=== PATIENT | female | born 1940 | race Caucasian/White ===

== ENCOUNTER 2016-11-23 18:59 | Emergency (ER) | payer SELFPAY ==
[~2016-11-23] VITALS: Ht 149.9 cm; Wt 54.4 kg
[2016-11-23] MEDS ORDERED: TDAP [DIPH/PERTUSSIS/TET] 0.5 ML VIAL IM ONE ×2 (19:27→19:30)
[2016-11-23 21:19] VITALS: BP 136/62
== END 2016-11-23 21:20 | disposition home or self-care (01) ==
LOC: ER 19:01
DX: S01.01XA Laceration without foreign body of scalp, initial encounter (principal); E03.9 Hypothyroidism, unspecified; F03.90 Unspecified dementia, unspecified severity, without behavioral disturbance, psychotic disturbance, mood disturbance, and anxiety; F32.9 Major depressive disorder, single episode, unspecified; Y04.0XXA Assault by unarmed brawl or fight, initial encounter; W25.XXXA Contact with sharp glass, initial encounter; Y93.89 Activity, other specified; Y92.89 Other specified places as the place of occurrence of the external cause; Y99.8 Other external cause status
CPT/HCPCS: 12002; 70450; 82962; 90471; 90715; 99284; A4606; A6402; Z7610

== ENCOUNTER 2017-05-27 14:32 | Emergency (ER) | payer OTHER ==
[~2017-05-27] VITALS: Ht 149.9 cm; Wt 63.5 kg
--- NOTE | 2017-05-27 14:40 | NUR ---
JILLIAN FROM [facility] DT LOWER ABDOMINAL PAIN, 0/10 AT THIS TIME, NON RADIATING, POSSIBLE UTI. DENIES HEMATURIA. PATIENT IS AAO3. APPEARSIN NO APPARENT DISTRESS. RESPIRATION EVEN AND UNALBORED. SKIN IS WARM TO TOUCH AND NON DIAPHORETIC,. AFEBRILE. VSS
--- NOTE | 2017-05-27 14:42 | NUR ---
URINE MARYELLEN COLLECTED AND SENT TO LAB
[2017-05-27 14:59] LABS: APPEARANCE,URINE Clear (CLEAR); BILIRUBIN,URINE Negative (NEGATIVE); BLOOD, URINE Trace-lysed Ery/uL (NEGATIVE); COLOR,URINE Yellow (YELLOW); KETONES,URINE Trace (NEGATIVE); LEUKOCYTE ESTERASE ,URINE Small (NEGATIVE); NITRITE, URINE Negative (NEGATIVE); PROTEIN,URINE 30 mg/dl (NEGATIVE); UGLUCOSE Negative (NEGATIVE); UROBILINOGEN,URINE 0.2 EU/dL (0.2)
[2017-05-27] MEDS ORDERED: IV NS 0.9% 1,000 ML BAG IV ONE (15:00)
[2017-05-27 15:05] LABS: BASOPHILS % (AUTO) 0.6 % (0.0-2.0); EOSINOPHILS # (AUTO) 0.1 /CMM (0.0-0.7); EOSINOPHILS % (AUTO) 1.2 % (0.0-6.0); HEMATOCRIT 43 % (33-45); HEMOGLOBIN 14.8 g/dL (11.5-14.8); LYMPHOCYTES # (AUTO) 1.9 /CMM (0.8-4.8); LYMPHOCYTES % (AUTO) 27.8 % (20.0-44.0); MEAN CORPUSCULAR HEMOGLOBIN 33 PG (26.0-33.0); MEAN CORPUSCULAR HGB CONC 35 g/dl (31.0-36.0); MEAN CORPUSCULAR VOLUME 95 fL (82-100); MONOCYTES # (AUTO) 0.6 /CMM (0.1-1.30); MONOCYTES % (AUTO) 8.1 % (2.0-12.0); NEUTROPHILS # (AUTO) 4.3 /CMM (1.8-8.9); NEUTROPHILS % (AUTO) 62.3 % (43.0-81.0); PLATELET COUNT (AUTO) 211 /CMM (150-450); RDW COEFFICIENT OF VARIATION 13.2 (11.5-15.0); WHITE BLOOD COUNT (AUTO) 6.9 K/uL (4.3-11.0)
[2017-05-27 15:10] LABS: WBC,URINE 21-50 /HPF (0-3)
[2017-05-27 15:11] LABS: BACTERIA,URINE 1+ /HPF (None Seen); SQUAMOUS EPITHELIAL CELL,UR Few /HPF (None Seen)
[2017-05-27 15:32] LABS: ALANINE AMINOTRANSFERASE 32 U/L (12-78); ALBUMIN 3.6 g/dL (3.4-5.0); ALKALINE PHOSPHATASE 74 U/L (46-116); ASPARTATE AMINOTRANSFERASE 23 U/L (15-37); BILIRUBIN,DIRECT 0.2 mg/dL (0.0-0.2); CALCIUM, SERUM 8.4 mg/dL (8.5-10.1); CARBON DIOXIDE 32 mmol/L (21-32); CHLORIDE 105 mmol/L (98-107); GLUCOSE 93 mg/dL (74-106); LIPASE 180 U/L (73-393); POTASSIUM 3.6 mmol/L (3.5-5.1); SODIUM SERUM 141 mmol/L (136-145); TOTAL PROTEIN, SERUM 7.4 g/dL (6.4-8.2); UREA NITROGEN, BLOOD 15 mg/dL (7-18)
[2017-05-27] MEDS ORDERED: CEFTRIAXONE 1GM BAG (ER ONLY) 1 GM/50 ML PIGGYBACK IV ONE (16:00)
--- NOTE | 2017-05-27 16:00 | NUR ---
DUPLICATE ORDER FOR ROCEPHINE
--- NOTE | 2017-05-27 16:02 | NUR ---
CALLED PHARMACY FOR HERMELINDO
--- NOTE | 2017-05-27 16:23 | NUR ---
CALLED [facility]. CASE ASSIGNED TO PHYSICIAN
[2017-05-27] MEDS ORDERED: CEFTRIAXONE 1 G in IV D5W 50 ML IV ONE (16:30)
--- NOTE | 2017-05-27 19:00 | NUR ---
REPORT GIVEN TO ANABEL HARRIS.
--- NOTE | 2017-05-27 19:23 | NUR ---
Patient discharged to home in stable condition. Written and verbal after care instructions given. Patient verbalizes understanding of instruction.IV removed. Catheter intact and site benign. Pressure and 4x4 applied to site. No bleeding noted.
[2017-05-27 19:24] VITALS: BP 143/72
== END 2017-05-27 19:24 | disposition home or self-care (01) ==
LOC: ER 14:36
DX: N39.0 Urinary tract infection, site not specified (principal); E03.9 Hypothyroidism, unspecified; F03.90 Unspecified dementia, unspecified severity, without behavioral disturbance, psychotic disturbance, mood disturbance, and anxiety; F32.9 Major depressive disorder, single episode, unspecified; M51.36 Other intervertebral disc degeneration, lumbar region; Z90.710 Acquired absence of both cervix and uterus
CPT/HCPCS: 36415; 80048-TC; 80076-TC; 81000-TC; 83690-TC; 85025-TC; 87086-TC; 87186-TC; A4606; J0696; J7060; Z7610

== ENCOUNTER 2017-09-20 22:42 | Emergency (ER) | payer OTHER ==
[2017-09-20] MEDS ORDERED: LET SOLN TOPICAL 8 ML UDC TP ONE ×2 (23:25→23:30)
[2017-09-20] MEDS ORDERED: TDAP [DIPH/PERTUSSIS/TET] 0.5 ML VIAL IM ONE ×2 (23:25→23:30)
== END 2017-09-21 01:35 | disposition home or self-care (01) ==
DX: S01.01XA Laceration without foreign body of scalp, initial encounter (principal); E03.9 Hypothyroidism, unspecified; F03.90 Unspecified dementia, unspecified severity, without behavioral disturbance, psychotic disturbance, mood disturbance, and anxiety; I10 Essential (primary) hypertension; R56.9 Unspecified convulsions; F31.9 Bipolar disorder, unspecified; W06.XXXA Fall from bed, initial encounter; Y93.89 Activity, other specified; Y92.89 Other specified places as the place of occurrence of the external cause; Y99.8 Other external cause status

== ENCOUNTER 2019-04-12 18:01 | Emergency (ER) | payer OTHER ==
[~2019-04-12] VITALS: Ht 152.4 cm; Wt 50.8 kg
[2019-04-12] MEDS ORDERED: CALC-7 PO (18:14)
[2019-04-12] MEDS ORDERED: QUET50TA PO (18:14)
[2019-04-12] MEDS ORDERED: LEVO100T9 PO (18:14)
[2019-04-12] MEDS ORDERED: VALP250S3 PO (18:14)
[2019-04-12] MEDS ORDERED: CLON0.5T4 PO (18:14)
[2019-04-12] MEDS ORDERED: QUET25TA PO (18:14)
[2019-04-12] MEDS ORDERED: CITA20TA16 PO (18:14)
[2019-04-12] MEDS ORDERED: ANAS1TAB8 PO (18:14)
[2019-04-12] MEDS ORDERED: TRAZ-182 PO (18:14)
[2019-04-12] MEDS ORDERED: DONE10TA44 PO (18:14)
[2019-04-12] MEDS ORDERED: AMLO5TAB9 PO (18:14)
[2019-04-12] MEDS ORDERED: HALO0.5T PO (18:14)
--- NOTE | 2019-04-12 18:27 | NUR ---
BIBRA60 FROM [facility], LETHARGY SINCE THIS AM. PT EYES CLOSED WILL MOAN FOR PAINFUL STIMULI. VSS. RR EVEN & UNLABORED. SKIN PINK WARM/DRY & INTACT. PLACED ON CLOTHING PATTERN PREPARER, SR. AWAITING EVAL BY AARON. WILL CONT TO MONITOR.
[2019-04-12 19:20] LABS: BASOPHILS % (AUTO) 0.5 % (0.0-2.0); EOSINOPHILS % (AUTO) 1.1 % (0.0-6.0); HEMATOCRIT 40 % (33-45); HEMOGLOBIN 13.6 g/dL (11.5-14.8); LYMPHOCYTES # (AUTO) 2.7 /CMM (0.8-4.8); LYMPHOCYTES % (AUTO) 42.9 % (20.0-44.0); MEAN CORPUSCULAR HGB CONC 34 g/dl (31.0-36.0); MEAN CORPUSCULAR VOLUME 104 fL (82-100); MONOCYTES # (AUTO) 0.5 /CMM (0.1-1.30); MONOCYTES % (AUTO) 8.6 % (2.0-12.0); NEUTROPHILS # (AUTO) 2.9 /CMM (1.8-8.9); NEUTROPHILS % (AUTO) 46.9 % (43.0-81.0); PLATELET COUNT (AUTO) 175 /CMM (150-450); RED BLOOD CELL COUNT(AUTO) 3.82 MIL/uL (4.0-5.2); WHITE BLOOD COUNT (AUTO) 6.2 K/uL (4.3-11.0)
[2019-04-12 19:26] LABS: APPEARANCE,URINE Clear (CLEAR); BILIRUBIN,URINE Negative (NEGATIVE); BLOOD, URINE Negative Ery/uL (NEGATIVE); COLOR,URINE Yellow (YELLOW); KETONES,URINE Negative (NEGATIVE); LEUKOCYTE ESTERASE ,URINE Trace (NEGATIVE); NITRITE, URINE Negative (NEGATIVE); PROTEIN,URINE Negative (NEGATIVE); UGLUCOSE Negative (NEGATIVE); UROBILINOGEN,URINE 0.2 EU/dL (0.2)
[2019-04-12 19:28] LABS: CALCIUM, SERUM 9.1 mg/dL (8.5-10.1); CARBON DIOXIDE 29 mmol/L (21-32); CHLORIDE 104 mmol/L (98-107); CREATININE 0.8 mg/dL (0.6-1.3); GLUCOSE 107 mg/dL (74-106); POTASSIUM 4.5 mmol/L (3.5-5.1); SODIUM SERUM 140 mmol/L (136-145); UREA NITROGEN, BLOOD 17 mg/dL (7-18)
[2019-04-12 19:33] LABS: ALANINE AMINOTRANSFERASE 117 U/L (12-78); ALBUMIN 3.7 g/dL (3.4-5.0); ALCOHOL, BLOOD < 3 mg/dL (0-0); ALKALINE PHOSPHATASE 60 U/L (46-116); ASPARTATE AMINOTRANSFERASE 93 U/L (15-37); BILIRUBIN,DIRECT 0.1 mg/dL (0.0-0.2); BILIRUBIN,TOTAL 1.1 mg/dL (0.2-1.0); TOTAL PROTEIN, SERUM 7.9 g/dL (6.4-8.2)
[2019-04-12 19:35] LABS: ACETAMINOPHEN 0 ug/ml (10-30); SALICYLATE 0.3 mg/dL (2.8-20.0)
[2019-04-12 19:37] LABS: SERUM AMMONIA 9 umol/L (11-32)
[2019-04-12 19:43] LABS: BACTERIA,URINE None seen /HPF (None Seen); RBC,URINE 0-2 /HPF (0-2); SQUAMOUS EPITHELIAL CELL,UR Few /HPF (None Seen); WBC,URINE 0-2 /HPF (0-3)
[2019-04-12 20:03] LABS: CREATINE KINASE, TOTAL 383 U/L (26-192)
[2019-04-12 20:26] LABS: THYROID STIMULATING HORMONE 190.918 uIU/mL (0.358-3.74)
--- NOTE | 2019-04-12 20:32 | NUR ---
CALLED [facility] FOR [facility] READ
--- NOTE | 2019-04-12 20:39 | NUR ---
PT ASLEEP, SNORING, WILL MOAN & START TALKING FOR PAINFUL STIMULI. RR EVEN & UNLABORED, SKIN PINK WARM/DRY & INTACT. WILL CONT TO MONITOR.
--- NOTE | 2019-04-12 21:08 | NUR ---
CALLED [facility] FOR READ CT HEAD
[2019-04-12] MEDS ORDERED: HYDROCORTISONE SOD SUCCINATE 100 MG/2 ML VIAL ONE (21:49)
[2019-04-12] MEDS: HYDROCORTISONE SOD SUCCINATE 100 MG/2 ML VIAL IV ONE (21:54)
[2019-04-12 21:56] VITALS: BP 108/65
--- NOTE | 2019-04-12 22:27 | NUR ---
CALLED [facility] , SPOKE RICK WORKING ON PENDING ADMISSION.
[2019-04-12] MEDS: LEVOTHYROXINE INJ 100 MCG VIAL IV ONE (22:35)
[2019-04-12] MEDS: LEVOTHYROXINE INJ 100 MCG VIAL IV SCH (22:35)
--- NOTE | 2019-04-12 22:39 | NUR ---
SHAMIR CAVAZOS. [facility] ER - DR. RUDOLPH REPORT [phone] ALS TRANSFER PRN ETA [id number].
--- NOTE | 2019-04-12 23:37 | NUR ---
REPORT GIVEN TO ANABEL ORTIZ FOR MARITA @ [facility]. PT EN ROUTE VIA ALS.
== END 2019-04-12 23:39 | disposition short-term general hospital (02) ==
LOC: ER 18:07
DX: S40.012A Contusion of left shoulder, initial encounter (principal); R41.82 Altered mental status, unspecified; E03.8 Other specified hypothyroidism; F03.90 Unspecified dementia, unspecified severity, without behavioral disturbance, psychotic disturbance, mood disturbance, and anxiety; R56.9 Unspecified convulsions; I10 Essential (primary) hypertension; F31.9 Bipolar disorder, unspecified; G47.00 Insomnia, unspecified; R00.1 Bradycardia, unspecified; Z79.899 Other long term (current) drug therapy; X58.XXXA Exposure to other specified factors, initial encounter; Y93.89 Activity, other specified; Y92.89 Other specified places as the place of occurrence of the external cause; Y99.8 Other external cause status
CPT/HCPCS: 36415; 70450; 71045; 73030; 80048; 80076; 80305; 80307; 80329; 81001; 82140; 82550; 84439; 84443; 84480; 84484; 85025; 87081; 93005; 96374; 96375; 99285; G0480; J1720; 81000-TC

== ENCOUNTER 2019-07-06 12:16 | Emergency (ER) | payer OTHER ==
[~2019-07-06] VITALS: Ht 152.4 cm; Wt 53.7 kg
[~2019-07-06 12:16] MED LIST: AMLO5TAB9 PO; ANAS1TAB8 PO; CALC-7 PO; CITA20TA16 PO; CLON0.5T4 PO; DONE10TA44 PO; HALO0.5T PO; LEVO100T9 PO; QUET25TA PO; QUET50TA PO; TRAZ-182 PO; VALP250S3 PO
--- NOTE | 2019-07-06 12:16 | NUR ---
PT DYLAN FROM [facility] C/O ALTERED MENTAL STATUS, L ARM TWITCHING AND DROOLING PER REPORT, PT IS AAOX1, NOT IN RESPIRATORY DISTRESS, HOOKED TO MONITOR, KEPT RESTED AND COMFORTABLE, WILL CONTINUE TO MONITOR.
--- NOTE | 2019-07-06 12:20 | NUR ---
SEEN AND EXAMINED BY .
--- NOTE | 2019-07-06 12:25 | NUR ---
CODE STROKE ACTIVATED.
--- NOTE | 2019-07-06 12:26 | NUR ---
TELE STROKE ACTIVATED.
[2019-07-06] MEDS ORDERED: IV NS 0.9% 250 ML IV ONE (12:27)
[2019-07-06] MEDS ORDERED: IOHEXOL-350 100 ML VIAL IV ONE (12:27)
[2019-07-06] MEDS ORDERED: CT SWABBABLE VALVE TRANS SET 1 EA INFUS.SET MC ONE (12:27)
--- NOTE | 2019-07-06 12:27 | NUR ---
WHEELED TO CT SCAN VIA ACLS PROTOCOL.
[2019-07-06 12:39] LABS: BASOPHILS # (AUTO) 0.1 /CMM (0.0-0.2); BASOPHILS % (AUTO) 0.7 % (0.0-2.0); EOSINOPHILS % (AUTO) 0.2 % (0.0-6.0); HEMATOCRIT 38 % (33-45); HEMOGLOBIN 13.1 g/dL (11.5-14.8); LYMPHOCYTES # (AUTO) 1.9 /CMM (0.8-4.8); LYMPHOCYTES % (AUTO) 26.1 % (20.0-44.0); MEAN CORPUSCULAR HGB CONC 34 g/dl (31.0-36.0); MEAN CORPUSCULAR VOLUME 104 fL (82-100); MONOCYTES # (AUTO) 0.5 /CMM (0.1-1.30); MONOCYTES % (AUTO) 6.4 % (2.0-12.0); NEUTROPHILS # (AUTO) 4.8 /CMM (1.8-8.9); NEUTROPHILS % (AUTO) 66.6 % (43.0-81.0); PLATELET COUNT (AUTO) 158 /CMM (150-450); WHITE BLOOD COUNT (AUTO) 7.2 K/uL (4.3-11.0)
--- NOTE | 2019-07-06 12:44 | NUR ---
PT IS BACK FROM THE CT SCAN.
[2019-07-06 12:55] LABS: CHOLESTEROL 224 mg/dL (<200); HDL CHOLESTEROL 86 mg/dL (40-60); LDL 114 mg/dL (0-99); TRIGLYCERIDES 140 mg/dL (30-150)
[2019-07-06 13:20] LABS: ALANINE AMINOTRANSFERASE 228 U/L (12-78); ALBUMIN 3.7 g/dL (3.4-5.0); ALKALINE PHOSPHATASE 67 U/L (46-116); ASPARTATE AMINOTRANSFERASE 108 U/L (15-37); BILIRUBIN,DIRECT 0.2 mg/dL (0.0-0.2); BILIRUBIN,TOTAL 0.9 mg/dL (0.2-1.0); CALCIUM, SERUM 8.6 mg/dL (8.5-10.1); CARBON DIOXIDE 28 mmol/L (21-32); CHLORIDE 106 mmol/L (98-107); GLUCOSE 132 mg/dL (74-106); POTASSIUM 3.3 mmol/L (3.5-5.1); SODIUM SERUM 145 mmol/L (136-145); TOTAL PROTEIN, SERUM 7.1 g/dL (6.4-8.2); UREA NITROGEN, BLOOD 20 mg/dL (7-18)
--- NOTE | 2019-07-06 13:32 | NUR ---
CALLED [facility], AWAITING MD CALL BACK
--- NOTE | 2019-07-06 14:55 | NUR ---
CALLED [facility] MD IS BACKED UP BUT HAS RECEIVED CASE
--- NOTE | 2019-07-06 15:39 | NUR ---
URINE SPECIMEN COLLECTED AND SENT TO LAB.
--- NOTE | 2019-07-06 15:44 | NUR ---
[facility] ACCEPTING DR. CORONA [phone] TRANSPORT HERE AT 1630 PRN.
[2019-07-06] MEDS ORDERED: IV NS 0.9% 1,000 ML BAG IV ONE (16:00)
[2019-07-06 16:07] LABS: APPEARANCE,URINE SL CLOUDY (CLEAR); BILIRUBIN,URINE NEGATIVE (NEGATIVE); BLOOD, URINE TRACE Ery/uL (NEGATIVE); COLOR,URINE YELLOW (YELLOW); KETONES,URINE NEGATIVE (NEGATIVE); NITRITE, URINE POSITIVE (NEGATIVE); PROTEIN,URINE TRACE mg/dl (NEGATIVE); UGLUCOSE NEGATIVE (NEGATIVE); UROBILINOGEN,URINE 0.2 EU/dL (0.2)
--- NOTE | 2019-07-06 16:10 | NUR ---
[facility] CALLED TO ANNA UA HAS BEEN COMPLETED AND TO ADD IT TO THE PACKET UPON ELECTRICAL MAINTENANCE SUPERVISOR
[2019-07-06 16:15] LABS: BACTERIA,URINE 3+ /HPF (None Seen); LEUKOCYTE ESTERASE ,URINE 1+ (NEGATIVE); RBC,URINE 0-2 /HPF (0-2); SQUAMOUS EPITHELIAL CELL,UR Few /HPF (None Seen); WBC,URINE 21-50 /HPF (0-3)
[2019-07-06 16:16] LABS: URINE AMORPHOUS PHOSPHATES Moderate /HPF (None Seen)
--- NOTE | 2019-07-06 16:25 | NUR ---
REPORT GIVEN TO ANABEL XAVIER OF [facility] FOR MARITA.
[2019-07-06 16:55] VITALS: BP 106/47
--- NOTE | 2019-07-06 16:55 | NUR ---
REPORT GIVEN TO EMT FOR PT TRANSFER TO [facility].
--- NOTE | 2019-07-09 09:47 | NUR ---
URINE CULTURE RESULT RELAYED AND SENT BY FAX TO [facility],[phone], PHONE#[phone]
== END 2019-07-06 16:56 | disposition short-term general hospital (02) ==
LOC: ER 12:20
DX: R41.82 Altered mental status, unspecified (principal); F03.90 Unspecified dementia, unspecified severity, without behavioral disturbance, psychotic disturbance, mood disturbance, and anxiety; I10 Essential (primary) hypertension; F32.9 Major depressive disorder, single episode, unspecified; G47.00 Insomnia, unspecified; E03.9 Hypothyroidism, unspecified; Z79.899 Other long term (current) drug therapy
CPT/HCPCS: 36415; 70450; 70496; 70498; 71045; 80048; 80061; 80076; 81001; 84484; 85025; 85730; 87077; 87086; 87186; 93005; 96360; 99285; J7030; J7050; Q9967; 81000-TC

== ENCOUNTER 2020-02-23 15:51 | Emergency (ER) | payer OTHER | END 2020-02-23 20:06 | DX: M25.551 Pain in right hip (principal); F03.90 Unspecified dementia, unspecified severity, without behavioral disturbance, psychotic disturbance, mood disturbance, and anxiety; I10 Essential (primary) hypertension; F32.9 Major depressive disorder, single episode, unspecified; E03.9 Hypothyroidism, unspecified; G47.00 Insomnia, unspecified; Z79.899 Other long term (current) drug therapy; W18.39XA Other fall on same level, initial encounter; Y93.89 Activity, other specified; Y92.89 Other specified places as the place of occurrence of the external cause; Y99.8 Other external cause status ==

== ENCOUNTER 2020-05-16 15:26 | Inpatient (IN) | payer OTHER ==
[~2020-05-16] VITALS: Ht 152.4 cm; Wt 46.3 kg
[~2020-05-16 15:26] MED LIST changes: +AMLO-212 PO; -AMLO5TAB9 PO
[2020-05-16] MEDS ORDERED: PIPERACILLIN /TAZOBACTAM 3.375 G in IV D5W 50 ML IV ONE (16:30)
[2020-05-16] MEDS ORDERED: IV NS 0.9% 500 ML BAG IV ONE (16:30)
[2020-05-16] MEDS ORDERED: VANCOMYCIN 1 GM in IV D5W 250 ML IV ONE (16:30)
[2020-05-16 18:10] LABS: BASOPHILS % (AUTO) 0.2 % (0.0-2.0); EOSINOPHILS % (AUTO) 0.1 % (0.0-6.0); HEMATOCRIT 55 % (33-45); HEMOGLOBIN 17.3 g/dL (11.5-14.8); LYMPHOCYTES # (AUTO) 1.9 /CMM (0.8-4.8); LYMPHOCYTES % (AUTO) 23.1 % (20.0-44.0); MEAN CORPUSCULAR HGB CONC 32 g/dl (31.0-36.0); MEAN CORPUSCULAR VOLUME 103 fL (82-100); MONOCYTES # (AUTO) 0.5 /CMM (0.1-1.30); MONOCYTES % (AUTO) 6.8 % (2.0-12.0); NEUTROPHILS # (AUTO) 5.7 /CMM (1.8-8.9); NEUTROPHILS % (AUTO) 69.8 % (43.0-81.0); PLATELET COUNT (AUTO) 176 /CMM (150-450); RED BLOOD CELL COUNT(AUTO) 5.32 MIL/uL (4.0-5.2); WHITE BLOOD COUNT (AUTO) 8.1 K/uL (4.3-11.0)
[2020-05-16 18:38] LABS: ALANINE AMINOTRANSFERASE 425 U/L (12-78); ALBUMIN 3.2 g/dL (3.4-5.0); ALKALINE PHOSPHATASE 167 U/L (46-116); ASPARTATE AMINOTRANSFERASE 329 U/L (15-37); BILIRUBIN,DIRECT 0.4 mg/dL (0.0-0.2); BILIRUBIN,TOTAL 1.4 mg/dL (0.2-1.0); CALCIUM, SERUM 8.6 mg/dL (8.5-10.1); CARBON DIOXIDE 29 mmol/L (21-32); CHLORIDE 125 mmol/L (98-107); CREATININE 1.5 mg/dL (0.6-1.3); GLUCOSE 117 mg/dL (74-106); POTASSIUM 4.4 mmol/L (3.5-5.1); TOTAL PROTEIN, SERUM 7.8 g/dL (6.4-8.2); UREA NITROGEN, BLOOD 59 mg/dL (7-18)
[2020-05-16 18:52] LABS: SODIUM SERUM 165 mmol/L (136-145)
[2020-05-16] MEDS ORDERED: VANCOMYCIN 1 GM VIAL ONE (19:19)
--- NOTE | 2020-05-16 19:43 | NUR ---
TOOK OVER PT CARE. PT AAOX0. BROUGHT TO E.D. FOR FAILURE TO THRIVE, DECRESED PO INTAKE. PT PLACED ON MONITOR AND PULSE OX. SAT 98%, ROOM AIR. AWAITING OTHER ORDERS.
[2020-05-16 19:44] LABS: BILIRUBIN,URINE MODERATE (NEGATIVE); COLOR,URINE YELLOW (YELLOW); LEUKOCYTE ESTERASE ,URINE MODERATE (NEGATIVE); NITRITE, URINE NEGATIVE (NEGATIVE); PH,URINE 7.5 (5.0-8.0); PROTEIN,URINE 30 mg/dl (NEGATIVE); UGLUCOSE NEGATIVE (NEGATIVE)
[2020-05-16 19:53] LABS: BACTERIA,URINE 3+ /HPF (None Seen); URINE AMORPHOUS PHOSPHATES Few /HPF (None Seen)
--- NOTE | 2020-05-16 20:00 | NUR ---
CALLED [facility], AWAITING MD CALL BACK
[2020-05-16] MEDS ORDERED: IV NS 0.9% 1,000 ML BAG IV ONE (20:30)
--- NOTE | 2020-05-16 20:39 | NUR ---
LAB CALLED REGARDING NEGATIVE COVID RESULT.
[2020-05-16] MEDS ORDERED: ACETAMINOPHEN 325 MG TABLET PO PRN (21:30)
[2020-05-16] MEDS: IV NS 0.9% 1,000 ML IV PRN (21:30)
[2020-05-16] MEDS ORDERED: Z GUARD REMEDY 2 OZ OINT TP PRN (21:30)
[2020-05-16] MEDS ORDERED: HYDROCODONE/APAP 5/325MG TABLET PO PRN (21:30)
[2020-05-16] MEDS ORDERED: ZOLPIDEM TARTRATE 5 MG TABLET PO PRN (21:30)
[2020-05-16] MEDS ORDERED: ONDANSETRON HCL/PF 4 MG/2 ML VIAL IVP PRN (21:30)
[2020-05-16] MEDS ORDERED: MAGNESIUM HYDROXIDE 30 ML UDC PO PRN (21:30)
[2020-05-16] MEDS ORDERED: VALPROIC ACID 250 MG/5 ML UDC PO ONE (21:30)
--- NOTE | 2020-05-16 21:44 | NUR ---
PO MEDS NOT GIVEN DUE TO PT FAILING PO CHALLENGE. I TRIED GIVING THE PT 30MLS OF WATER, PT WAS NOT ABLE TO FOLLOW MY COMMAND OR SWALLOW THE WATER EASILY. WILL TRY AGAIN. PT STATED "I CAN NOT" WHEN GIVING HER WATER.
[2020-05-16] MEDS: QUETIAPINE FUMARATE 25 MG TABLET PO SCH (22:00)
[2020-05-16] MEDS: DONEPEZIL 5 MG TABLET PO SCH (22:00)
--- NOTE | 2020-05-16 22:02 | NUR ---
PT UNABLE TO DRINK WATER. WILL HOLD PO MEDS.
[2020-05-17] MEDS ORDERED: PIPERACILLIN /TAZOBACTAM 2.25 G VIAL IV ONE (00:16)
[2020-05-17] MEDS: PIPERACILLIN /TAZOBACTAM 2.25 G in IV D5W 50 ML IV SCH ×4 (00:19→18:00)
--- NOTE | 2020-05-17 00:36 | NUR ---
MASTER TECHNICIAN AT BEDSIDE
[2020-05-17 01:12] LABS: CALCIUM, SERUM 7.2 mg/dL (8.5-10.1); CREATININE 1.3 mg/dL (0.6-1.3); POTASSIUM 3.5 mmol/L (3.5-5.1)
[2020-05-17] MEDS: IV NS 0.9% 1,000 ML IV PRN (04:06)
--- NOTE | 2020-05-17 04:06 | NUR ---
SPOKE TO PERICO ARAUJO, STATED TO CANCEL 1L NS 100ML/HR.
[2020-05-17] MEDS ORDERED: IV 1/2NS 1000 ML 1,000 ML IV PRN (04:30)
--- NOTE | 2020-05-17 06:30 | NUR ---
PT RESTING COMFORTABLY. VSS. PROVIDED WITH MORE BLANKETS, WILL CONTINUE TO MONITOR.
[2020-05-17] MEDS: LEVOTHYROXINE SODIUM 100 MCG TABLET PO SCH (07:00)
[2020-05-17] MEDS: QUETIAPINE FUMARATE 25 MG TABLET PO SCH ×3 (07:33→22:00)
[2020-05-17 07:57] LABS: BASOPHILS % (AUTO) 0.2 % (0.0-2.0); EOSINOPHILS % (AUTO) 0.1 % (0.0-6.0); HEMATOCRIT 43 % (33-45); LYMPHOCYTES # (AUTO) 1.3 /CMM (0.8-4.8); LYMPHOCYTES % (AUTO) 13.4 % (20.0-44.0); MEAN CORPUSCULAR HGB CONC 32 g/dl (31.0-36.0); MEAN CORPUSCULAR VOLUME 102 fL (82-100); MONOCYTES # (AUTO) 0.5 /CMM (0.1-1.30); MONOCYTES % (AUTO) 5.4 % (2.0-12.0); NEUTROPHILS # (AUTO) 7.7 /CMM (1.8-8.9); NEUTROPHILS % (AUTO) 80.9 % (43.0-81.0); PLATELET COUNT (AUTO) 131 /CMM (150-450); RED BLOOD CELL COUNT(AUTO) 4.24 MIL/uL (4.0-5.2); WHITE BLOOD COUNT (AUTO) 9.5 K/uL (4.3-11.0)
[2020-05-17 08:08] LABS: ALBUMIN 2.4 g/dL (3.4-5.0); BILIRUBIN,DIRECT 0.4 mg/dL (0.0-0.2); BILIRUBIN,TOTAL 1.3 mg/dL (0.2-1.0); CALCIUM, SERUM 7.1 mg/dL (8.5-10.1); CREATININE 1.2 mg/dL (0.6-1.3); MAGNESIUM 2.2 mg/dL (1.8-2.4); PHOSPHORUS 2.4 mg/dL (2.5-4.9); POTASSIUM 3.5 mmol/L (3.5-5.1); TOTAL PROTEIN, SERUM 5.8 g/dL (6.4-8.2)
[2020-05-17] MEDS: VALPROIC ACID 250 MG/5 ML UDC PO SCH ×2 (08:22→17:35)
[2020-05-17] MEDS: CITALOPRAM HYDROBROMIDE 20 MG TABLET PO SCH (08:22)
[2020-05-17] MEDS: ANASTROZOLE 1 MG TABLET PO SCH (08:22)
[2020-05-17] MEDS: CALCIUM CARB 250MG /VITAMIN D 1 UDTAB PO SCH ×2 (08:23→17:35)
[2020-05-17] MEDS: AMLODIPINE BESYLATE 5 MG TABLET PO SCH (08:23)
[2020-05-17] MEDS ORDERED: ENOXAPARIN SODIUM 30 MG/0.3 ML DISP.SYRIN ONE (08:59)
[2020-05-17] MEDS: ENOXAPARIN SODIUM 30 MG/0.3 ML DISP.SYRIN SQ SCH (09:10)
[2020-05-17] MEDS ORDERED: QUETIAPINE FUMARATE 25 MG TABLET ONE (12:32)
[2020-05-17 14:24] LABS: CALCIUM, SERUM 7.2 mg/dL (8.5-10.1); CREATININE 1.3 mg/dL (0.6-1.3); POTASSIUM 3.7 mmol/L (3.5-5.1)
[2020-05-17] MEDS ORDERED: K PHOS NEUTRAL 250 MG TABLET PO ONE (16:30)
--- NOTE | 2020-05-17 19:16 | NUR ---
ASSUMED CARE. RECEIVED REPORT FROM AM SHIFT ANABEL PETERSEN. PT RESTING QUIETLY, NO ACUTE DISTRESS NOTED, RESP EVEN AND UNLABORED. PT ON CARDIAC MONITORING, CONTINUOUS POX. NO PAIN OR DISCOMFORT NOTED. PT AWAKENS TO PAINFUL STIMULI BUT FALLS BACK. PT AAOX1. SKIN WARM, NONDIAPHORETIC. CALL LIGHT WITHIN REACH. WILL CONTINUE TO MONITOR PT CLOSELY. REPOSITIONED PT FOR COMFORT.
[2020-05-17] MEDS: VANCOMYCIN 1 GM in IV D5W 250 ML IV SCH (20:08)
[2020-05-17] MEDS: DONEPEZIL 5 MG TABLET PO SCH (22:00)
--- NOTE | 2020-05-17 22:36 | NUR ---
REPOSITION PT FOR COMFORT. NO ACUT DISTRESS NOTED, NO PAIN OR DISCOMFORT NOTED AT THIS TIME.
[2020-05-17 23:03] LABS: CALCIUM, SERUM 7.1 mg/dL (8.5-10.1); CREATININE 1.1 mg/dL (0.6-1.3); POTASSIUM 3.9 mmol/L (3.5-5.1)
[2020-05-18] MEDS: PIPERACILLIN /TAZOBACTAM 2.25 G in IV D5W 50 ML IV SCH ×4 (00:15→17:07)
--- NOTE | 2020-05-18 01:54 | NUR ---
PT ASLEEP, NO ACUTE DISTRESS NOTED, RESP EVEN AND UNLABORED. CALL LIGHT WITHIN REACH. WILL CONTINUE TO MONITOR PT CLOSELY.
[2020-05-18 05:27] LABS: BASOPHILS % (AUTO) 0.2 % (0.0-2.0); EOSINOPHILS % (AUTO) 0.8 % (0.0-6.0); HEMATOCRIT 40 % (33-45); HEMOGLOBIN 13.2 g/dL (11.5-14.8); LYMPHOCYTES # (AUTO) 1.4 /CMM (0.8-4.8); LYMPHOCYTES % (AUTO) 16.8 % (20.0-44.0); MEAN CORPUSCULAR HGB CONC 33 g/dl (31.0-36.0); MEAN CORPUSCULAR VOLUME 102 fL (82-100); MONOCYTES # (AUTO) 0.5 /CMM (0.1-1.30); MONOCYTES % (AUTO) 5.9 % (2.0-12.0); NEUTROPHILS # (AUTO) 6.5 /CMM (1.8-8.9); NEUTROPHILS % (AUTO) 76.3 % (43.0-81.0); PLATELET COUNT (AUTO) 116 /CMM (150-450); RED BLOOD CELL COUNT(AUTO) 3.94 MIL/uL (4.0-5.2); WHITE BLOOD COUNT (AUTO) 8.5 K/uL (4.3-11.0)
[2020-05-18 05:47] LABS: CALCIUM, SERUM 7.2 mg/dL (8.5-10.1); CREATININE 0.9 mg/dL (0.6-1.3); POTASSIUM 3.2 mmol/L (3.5-5.1)
--- NOTE | 2020-05-18 06:20 | NUR ---
REPOSITION PT FOR COMFORT. NO ACUT DISTRESS NOTED, NO PAIN OR DISCOMFORT NOTED AT THIS TIME.
[2020-05-18] MEDS: LEVOTHYROXINE SODIUM 100 MCG TABLET PO SCH (07:00)
[2020-05-18] MEDS: QUETIAPINE FUMARATE 25 MG TABLET PO SCH ×3 (07:40→22:00)
[2020-05-18] MEDS: ANASTROZOLE 1 MG TABLET PO SCH (10:00)
[2020-05-18] MEDS: CITALOPRAM HYDROBROMIDE 20 MG TABLET PO SCH (10:00)
[2020-05-18] MEDS: CALCIUM CARB 250MG /VITAMIN D 1 UDTAB PO SCH ×2 (10:00→16:05)
[2020-05-18] MEDS: VALPROIC ACID 250 MG/5 ML UDC PO SCH ×2 (10:00→16:05)
[2020-05-18] MEDS: AMLODIPINE BESYLATE 5 MG TABLET PO SCH (10:00)
[2020-05-18] MEDS ORDERED: POTASSIUM CL. PREMIX PERIPHER. 200 ML ONE (10:16)
[2020-05-18] MEDS ORDERED: ENOXAPARIN SODIUM 30 MG/0.3 ML DISP.SYRIN ONE (10:19)
[2020-05-18] MEDS: POTASSIUM CL. PREMIX PERIPHER. 50 ML IV SCH ×4 (10:25→13:30)
[2020-05-18] MEDS: ENOXAPARIN SODIUM 30 MG/0.3 ML DISP.SYRIN SQ SCH (10:25)
--- NOTE | 2020-05-18 10:58 | NUR ---
WOUND CARE CONSULT: PT PRESENTS WITH SACRAL INTACT DEEP TISSUE INJURY WITH SCARRING AND LEFT HIP UNSTAGEABLE ULCER, PRESENT ON ADMISSION. RECOMMEND SURGICAL CONSULT. DR KRISTY THURSTON NOTIFIED OF CONSULT REQUEST. RECOMMENDATIONS MADE FOR WOUND CARE AND SKIN PROTECTION. DISCUSSED WITH NURSING STAFF. PT NOTED TO HAVE CONTRACTED LOWER EXTREMITIES AND PT NOTED TO BE INCONTINENT. MD IN AGREEMENT WITH PLAN OF CARE. Addendum: 05/18/20 at 1059 by CLEO CARDENAS WNDNU Amended: Links added.
[2020-05-18] MEDS: DAKINS QUARTER STRENGTH (0.125%) 480 ML BOTTLE TOP SCH (13:30)
[2020-05-18] MEDS ORDERED: K PHOS NEUTRAL 250 MG TABLET PO ONE (17:30)
--- NOTE | 2020-05-18 19:32 | NUR ---
ASSUMED CARE. RECEIVED REPORT FROM AM SHIFT ANABEL PETERSEN. PT AAOX1. SKIN WARM, NONDIAPHORETIC. PT RESTING QUIETLY, NO ACUTE DISTRESS NOTED, RESP EVEN AND UNLABORED. PT ON CARDIAC MONITORING, CONTINUOUS POX. NO PAIN OR DISCOMFORT NOTED. CALL LIGHT WITHIN REACH. WILL CONTINUE TO MONITOR PT CLOSELY. REPOSITIONED PT FOR COMFORT.
[2020-05-18] MEDS: VANCOMYCIN 1 GM in IV D5W 250 ML IV SCH (20:09)
[2020-05-18] MEDS: DONEPEZIL 5 MG TABLET PO SCH (22:00)
[2020-05-18] MEDS ORDERED: DEXTROSE 50%-WATER 50 ML DISP.SYRIN IV PRN (23:00)
--- NOTE | 2020-05-18 23:56 | NUR ---
REPOSITION PT FOR COMFORT. NO ACUT DISTRESS NOTED, NO PAIN OR DISCOMFORT NOTED AT THIS TIME.
[2020-05-19] MEDS: BLOOD SUGAR DIAGNOSTIC 1 EACH STRIP IN SCH ×4 (00:39→18:06)
[2020-05-19] MEDS: PIPERACILLIN /TAZOBACTAM 2.25 G in IV D5W 50 ML IV SCH ×4 (00:39→18:30)
--- NOTE | 2020-05-19 05:25 | NUR ---
REPOSITION PT FOR COMFORT. NO ACUT DISTRESS NOTED, NO PAIN OR DISCOMFORT NOTED AT THIS TIME.
[2020-05-19 05:31] LABS: CALCIUM, SERUM 6.9 mg/dL (8.5-10.1); CARBON DIOXIDE 20 mmol/L (21-32); CHLORIDE 116 mmol/L (98-107); CREATININE 0.8 mg/dL (0.6-1.3); GLUCOSE 116 mg/dL (74-106); PHOSPHORUS 1.8 mg/dL (2.5-4.9); POTASSIUM 3.7 mmol/L (3.5-5.1); SODIUM SERUM 144 mmol/L (136-145); UREA NITROGEN, BLOOD 15 mg/dL (7-18)
[2020-05-19] MEDS: LEVOTHYROXINE SODIUM 100 MCG TABLET PO SCH (07:00)
[2020-05-19] MEDS: QUETIAPINE FUMARATE 25 MG TABLET PO SCH ×3 (08:00→22:00)
[2020-05-19] MEDS: CITALOPRAM HYDROBROMIDE 20 MG TABLET PO SCH (08:22)
[2020-05-19] MEDS: ANASTROZOLE 1 MG TABLET PO SCH (08:22)
[2020-05-19] MEDS: VALPROIC ACID 250 MG/5 ML UDC PO SCH ×2 (08:22→16:57)
[2020-05-19] MEDS: CALCIUM CARB 250MG /VITAMIN D 1 UDTAB PO SCH ×2 (08:23→16:58)
[2020-05-19] MEDS: DAKINS QUARTER STRENGTH (0.125%) 480 ML BOTTLE TOP SCH (08:23)
[2020-05-19] MEDS: AMLODIPINE BESYLATE 5 MG TABLET PO SCH (08:23)
[2020-05-19] MEDS ORDERED: ENOXAPARIN SODIUM 30 MG/0.3 ML DISP.SYRIN ONE (08:41)
[2020-05-19] MEDS: IV D5/0.45 NACL 1,000 ML IV PRN (08:46)
[2020-05-19] MEDS: ENOXAPARIN SODIUM 30 MG/0.3 ML DISP.SYRIN SQ SCH (08:47)
--- NOTE | 2020-05-19 12:39 | NUR ---
Blood glucose checked 126
[2020-05-19] MEDS: POTASSIUM PHOSPHATE MM 7.5 MMOL in IV NS 0.9% 100 ML IV SCH ×2 (15:22→18:00)
[2020-05-19] MEDS ORDERED: VANCOMYCIN 1 GM VIAL ONE (20:17)
[2020-05-19] MEDS: VANCOMYCIN 1 GM in IV D5W 250 ML IV SCH (20:35)
[2020-05-19] MEDS ORDERED: CEFTRIAXONE 1GM BAG (ER ONLY) 50 ML IV ONE (21:02)
[2020-05-19] MEDS: CEFTRIAXONE 1 G in IV D5W 50 ML IV SCH (21:13)
[2020-05-19] MEDS: DONEPEZIL 5 MG TABLET PO SCH (22:00)
--- NOTE | 2020-05-19 22:08 | NUR ---
PT UNABLE TO TAKE PO MED.
--- NOTE | 2020-05-19 23:01 | NUR ---
SPOKE TO JAIME LAROSE, MADE AWARE THAT PT IS NOT ABLE TO TAKE PO MEDS.
--- NOTE | 2020-05-19 23:27 | NUR ---
RESTING COMFORTABLY. VSS.
[2020-05-20] MEDS: BLOOD SUGAR DIAGNOSTIC 1 EACH STRIP IN SCH ×5 (00:40→23:29)
--- NOTE | 2020-05-20 05:26 | NUR ---
PT REPOSITIONED, VSS. RESTING COMFORTABLY.
[2020-05-20 06:09] LABS: BASOPHILS % (AUTO) 0.3 % (0.0-2.0); EOSINOPHILS % (AUTO) 1.6 % (0.0-6.0); HEMATOCRIT 38 % (33-45); HEMOGLOBIN 12.8 g/dL (11.5-14.8); LYMPHOCYTES # (AUTO) 1.3 /CMM (0.8-4.8); LYMPHOCYTES % (AUTO) 20.3 % (20.0-44.0); MEAN CORPUSCULAR HGB CONC 33 g/dl (31.0-36.0); MEAN CORPUSCULAR VOLUME 99 fL (82-100); MONOCYTES # (AUTO) 0.3 /CMM (0.1-1.30); MONOCYTES % (AUTO) 5.3 % (2.0-12.0); NEUTROPHILS # (AUTO) 4.5 /CMM (1.8-8.9); NEUTROPHILS % (AUTO) 72.5 % (43.0-81.0); PLATELET COUNT (AUTO) 101 /CMM (150-450); RED BLOOD CELL COUNT(AUTO) 3.85 MIL/uL (4.0-5.2); WHITE BLOOD COUNT (AUTO) 6.2 K/uL (4.3-11.0)
[2020-05-20 06:21] LABS: CALCIUM, SERUM 6.5 mg/dL (8.5-10.1); CREATININE 0.8 mg/dL (0.6-1.3); MAGNESIUM 1.5 mg/dL (1.8-2.4)
[2020-05-20 06:24] LABS: POTASSIUM 2.8 mmol/L (3.5-5.1)
[2020-05-20] MEDS: LEVOTHYROXINE SODIUM 100 MCG TABLET PO SCH (07:00)
[2020-05-20] MEDS: POTASSIUM CL. PREMIX PERIPHER. 50 ML IV SCH ×4 (07:30→10:45)
--- NOTE | 2020-05-20 07:38 | NUR ---
patient in bed asleep, easily arousable by voice. hooked to monitor. VSS. will continue to monitor accordingly
[2020-05-20] MEDS: QUETIAPINE FUMARATE 25 MG TABLET PO SCH ×3 (08:00→22:00)
[2020-05-20] MEDS: CITALOPRAM HYDROBROMIDE 20 MG TABLET PO SCH (09:00)
[2020-05-20] MEDS: DAKINS QUARTER STRENGTH (0.125%) 480 ML BOTTLE TOP SCH (09:00)
[2020-05-20] MEDS: ENOXAPARIN SODIUM 30 MG/0.3 ML DISP.SYRIN SQ SCH (09:00)
[2020-05-20] MEDS: AMLODIPINE BESYLATE 5 MG TABLET PO SCH (09:00)
[2020-05-20] MEDS: CALCIUM CARB 250MG /VITAMIN D 1 UDTAB PO SCH ×2 (09:00→17:00)
[2020-05-20] MEDS: VALPROIC ACID 250 MG/5 ML UDC PO SCH ×2 (09:00→17:00)
[2020-05-20] MEDS: ANASTROZOLE 1 MG TABLET PO SCH (09:00)
--- NOTE | 2020-05-20 10:42 | NUR ---
PATIENT IN BED ASLEEP, EASILY AROUSABLE BY VOICE. REFUSED BREAKFAST TRAY. PLACED FOOD AT BEDSIDE. VSS.
[2020-05-20] MEDS: Magnesium 1GM/D5W 100ML PREMIX 100 ML IV SCH ×2 (12:12→13:19)
--- NOTE | 2020-05-20 14:12 | NUR ---
PATIENT IN BED EYES CLOSED. DOES NOT WANT TO BE BOTHERED. REPOSITIONED TO R SIDE. KEPT WARM AND COMFORTABLE.
[2020-05-20] MEDS: POTASSIUM PHOSPHATE MM 7.5 MMOL in IV NS 0.9% 100 ML IV SCH ×2 (16:30→20:30)
--- NOTE | 2020-05-20 17:12 | NUR ---
PATIENT REPOSITIONED AT HER LEFT SIDE FOR COMFORT
--- NOTE | 2020-05-20 19:14 | NUR ---
PATIENT IN BED ASLEEP, EASILY AROUSABLE BY VOICE. HOOKED TO MONITOR. VSS. WILL CONTINUE TO MONITOR ACCORDINGLY
[2020-05-20] MEDS ORDERED: ENOXAPARIN SODIUM 30 MG/0.3 ML DISP.SYRIN ONE (19:28)
[2020-05-20] MEDS: IV D5/0.45 NACL 1,000 ML IV PRN (19:45)
--- NOTE | 2020-05-20 20:46 | NUR ---
Alba freeman in EDM - 05/20/20 at 2047 by EVICTOR PT HR AT 78 SINUS MD GOYO AWARE. STATED TO STOP THE AMIODARONE DRIP.
--- NOTE | 2020-05-20 21:52 | NUR ---
PT SAT 97% ROOM AIR.
[2020-05-20] MEDS ORDERED: CEFTRIAXONE 1GM BAG (ER ONLY) 50 ML IV ONE (21:54)
[2020-05-20] MEDS: CEFTRIAXONE 1 G in IV D5W 50 ML IV SCH (21:55)
[2020-05-20] MEDS: DONEPEZIL 5 MG TABLET PO SCH (22:00)
[2020-05-20] MEDS: VANCOMYCIN 0.75 GM in IV D5W 250 ML IV SCH (22:24)
--- NOTE | 2020-05-20 22:28 | NUR ---
PT PASSED SWALLOW EVAL. JAIME LAROSE AWARE.
--- NOTE | 2020-05-21 01:00 | NUR ---
PT RESTING COMFORTABLY. VSS. REPOSITIONED TO THE RIGHT. PROVIDED WITH BLANKETS.
--- NOTE | 2020-05-21 04:04 | NUR ---
PT RESTING COMFORTABLY. VSS. REMAINS ASLEEP.
[2020-05-21 04:47] LABS: BASOPHILS % (AUTO) 0.5 % (0.0-2.0); EOSINOPHILS % (AUTO) 1.9 % (0.0-6.0); HEMATOCRIT 43 % (33-45); LYMPHOCYTES # (AUTO) 1.4 /CMM (0.8-4.8); LYMPHOCYTES % (AUTO) 19.8 % (20.0-44.0); MEAN CORPUSCULAR HGB CONC 33 g/dl (31.0-36.0); MEAN CORPUSCULAR VOLUME 101 fL (82-100); MONOCYTES # (AUTO) 0.4 /CMM (0.1-1.30); MONOCYTES % (AUTO) 5.3 % (2.0-12.0); NEUTROPHILS # (AUTO) 5.2 /CMM (1.8-8.9); NEUTROPHILS % (AUTO) 72.5 % (43.0-81.0); PLATELET COUNT (AUTO) 111 /CMM (150-450); RED BLOOD CELL COUNT(AUTO) 4.21 MIL/uL (4.0-5.2); WHITE BLOOD COUNT (AUTO) 7.1 K/uL (4.3-11.0)
[2020-05-21 05:00] LABS: CALCIUM, SERUM 6.7 mg/dL (8.5-10.1); CREATININE 0.7 mg/dL (0.6-1.3); MAGNESIUM 2.3 mg/dL (1.8-2.4); PHOSPHORUS 2.7 mg/dL (2.5-4.9); POTASSIUM 3.4 mmol/L (3.5-5.1)
[2020-05-21] MEDS: BLOOD SUGAR DIAGNOSTIC 1 EACH STRIP IN SCH ×3 (06:11→17:16)
[2020-05-21] MEDS: LEVOTHYROXINE SODIUM 100 MCG TABLET PO SCH (07:00)
--- NOTE | 2020-05-21 07:19 | NUR ---
REPORT GIVEN TO SHANTEL LITTLE FOR MARITA
--- NOTE | 2020-05-21 08:00 | NUR ---
PATIENT ASLEEP BUT AROUSABLE, PATIENT ABLE TO TAKE MEDS ONCE FULLY AWAKE. NOTED WITH DELAYED SWALLOWING. HAD HOB ELEVATED AT ALL TIMES. KEPT COMFORTABLE. NO DISTRESS NOTED.
[2020-05-21] MEDS: QUETIAPINE FUMARATE 25 MG TABLET PO SCH ×3 (08:05→22:00)
[2020-05-21] MEDS: CITALOPRAM HYDROBROMIDE 20 MG TABLET PO SCH (08:06)
[2020-05-21] MEDS: VALPROIC ACID 250 MG/5 ML UDC PO SCH ×2 (08:06→17:16)
[2020-05-21] MEDS: ANASTROZOLE 1 MG TABLET PO SCH (08:06)
[2020-05-21] MEDS: DAKINS QUARTER STRENGTH (0.125%) 480 ML BOTTLE TOP SCH (08:08)
[2020-05-21] MEDS: CALCIUM CARB 250MG /VITAMIN D 1 UDTAB PO SCH ×2 (08:08→17:16)
[2020-05-21] MEDS: AMLODIPINE BESYLATE 5 MG TABLET PO SCH (08:25)
[2020-05-21] MEDS: ENOXAPARIN SODIUM 30 MG/0.3 ML DISP.SYRIN SQ SCH (09:15)
--- NOTE | 2020-05-21 10:30 | NUR ---
REPOSITION PT FOR COMFORT. NO ACUTE DISTRESS NOTED, NO PAIN OR DISCOMFORT NOTED AT THIS TIME.
[2020-05-21] MEDS ORDERED: POTASSIUM CL. PREMIX PERIPHER. 50 ML IV ONE (12:30)
[2020-05-21] MEDS ORDERED: LIDOCAINE 2%-EPI 1:100,000 30 ML VIAL ONE (13:21)
[2020-05-21] MEDS ORDERED: SILVER NITRATE APPLICATOR 1 EA BOX ONE (13:21)
[2020-05-21] MEDS ORDERED: POTASSIUM CL. PREMIX PERIPHER. 50 ML ONE (13:24)
[2020-05-21] MEDS ORDERED: SILVER NITRATE APPLICATOR 1 EA BOX TP ONE (13:30)
--- NOTE | 2020-05-21 13:40 | NUR ---
dr. caldera at bedside, did a wound debridement on left hip.
--- NOTE | 2020-05-21 14:25 | NUR ---
TURNED AND REPOSITIONED FOR COMFORT. FOAM APPLIED ON SACRAL AND LEFT HIP. HEELS OFFLOADED.
[2020-05-21 14:35] LABS: C-REACTIVE PROTEIN 2.6 mg/dL (0.0-0.9)
[2020-05-21] MEDS: IV D5/0.45 NACL 1,000 ML IV PRN ×2 (17:16→20:05)
--- NOTE | 2020-05-21 19:20 | NUR ---
PATIENT RESTING, TURNED AND REPOSITIONED, NO DISTRESS NOTED, NEEDS ATTENDED.
[2020-05-21] MEDS: VANCOMYCIN 0.75 GM in IV D5W 250 ML IV SCH (20:05)
--- NOTE | 2020-05-21 20:43 | NUR ---
PT NOTED TO BE SLEEP, UNABLE TO SPEAK IN FULL SENTENCES. VITALS STABLE.
[2020-05-21] MEDS: CEFTRIAXONE 1 G in IV D5W 50 ML IV SCH (21:00)
[2020-05-21] MEDS: DONEPEZIL 5 MG TABLET PO SCH (22:00)
--- NOTE | 2020-05-21 22:07 | NUR ---
UNABLE TO GIVE PO MEDS, PT NOTED DROWSY.
--- NOTE | 2020-05-21 22:59 | NUR ---
PT FAILED PO CHALLENGE DUE TO HER UNABLE TO SPEAK IN FULL SENTENCES. PT NOTED TO LOOK DROWSY.
--- NOTE | 2020-05-22 00:46 | NUR ---
PT REPOSITONED, PROVIDED WITH MORE PILLOWS, REMAINS ON MONITOR.
[2020-05-22 05:03] LABS: BASOPHILS % (AUTO) 0.3 % (0.0-2.0); EOSINOPHILS % (AUTO) 1.1 % (0.0-6.0); HEMATOCRIT 42 % (33-45); LYMPHOCYTES # (AUTO) 1.1 /CMM (0.8-4.8); LYMPHOCYTES % (AUTO) 17.2 % (20.0-44.0); MEAN CORPUSCULAR HGB CONC 33 g/dl (31.0-36.0); MEAN CORPUSCULAR VOLUME 99 fL (82-100); MONOCYTES # (AUTO) 0.3 /CMM (0.1-1.30); NEUTROPHILS # (AUTO) 4.9 /CMM (1.8-8.9); NEUTROPHILS % (AUTO) 76.4 % (43.0-81.0); PLATELET COUNT (AUTO) 112 /CMM (150-450); RED BLOOD CELL COUNT(AUTO) 4.27 MIL/uL (4.0-5.2); WHITE BLOOD COUNT (AUTO) 6.4 K/uL (4.3-11.0)
[2020-05-22 05:17] LABS: D-DIMER 1.21 mg/L(FEU (0.17-0.50)
[2020-05-22 05:29] LABS: CALCIUM, SERUM 6.9 mg/dL (8.5-10.1); CREATININE 0.8 mg/dL (0.6-1.3); MAGNESIUM 2.1 mg/dL (1.8-2.4); PHOSPHORUS 2.1 mg/dL (2.5-4.9); POTASSIUM 3.3 mmol/L (3.5-5.1)
[2020-05-22] MEDS: BLOOD SUGAR DIAGNOSTIC 1 EACH STRIP IN SCH ×3 (06:04→12:17)
[2020-05-22] MEDS: LEVOTHYROXINE SODIUM 100 MCG TABLET PO SCH (07:00)
--- NOTE | 2020-05-22 07:23 | NUR ---
PT IS MORE AWAKE THAN LEANDRO, STILL APPEARS TO BE DROWSY. WAS NOT ABLE TO PASS PO CHALLANGE.
--- NOTE | 2020-05-22 07:27 | NUR ---
PT CHANGED, REPOSTIONED, VSS.
--- NOTE | 2020-05-22 07:39 | NUR ---
REPORT GIVEN TO JACOB LITTLE FOR MARITA
[2020-05-22] MEDS: QUETIAPINE FUMARATE 25 MG TABLET PO SCH ×3 (08:00→22:00)
--- NOTE | 2020-05-22 08:36 | NUR ---
PATIENT OPENS EYES WITH TACTILE STIMULI, APPEARS DROWSY. HOOKED TO MONITOR. VSS.
--- NOTE | 2020-05-22 08:44 | NUR ---
PATIENT ASLEEP, AROUSABLE BY VOICE. DOES NOT WANT TO TAKE MEDICATIONS AT THIS TIME. HOOKED TO MONITOR. VSS
[2020-05-22] MEDS: ANASTROZOLE 1 MG TABLET PO SCH (09:00)
[2020-05-22] MEDS: VALPROIC ACID 250 MG/5 ML UDC PO SCH ×2 (09:00→17:00)
[2020-05-22] MEDS: CITALOPRAM HYDROBROMIDE 20 MG TABLET PO SCH (09:00)
[2020-05-22] MEDS: CALCIUM CARB 250MG /VITAMIN D 1 UDTAB PO SCH ×2 (09:00→17:00)
[2020-05-22] MEDS: AMLODIPINE BESYLATE 5 MG TABLET PO SCH (09:00)
--- NOTE | 2020-05-22 09:10 | NUR ---
SPEECH THERAPIST NELSON AT BEDSIDE
--- NOTE | 2020-05-22 09:30 | NUR ---
PER SPEECH THERAPIST, PATIENT SWALLOWS SLOWLY. NEEDS FEEDING PRECAUTION. WILL BE PLACED ON PUREED WITH NECTAR THICKENED LIQUID. WILL CALL DIETARY DEPT FOR ENSURE NUTRITION SHAKE RECOMMENDATION
--- NOTE | 2020-05-22 09:48 | NUR ---
PATIENT APPEARS DROWSY. NO PO MEDICATION AT THIS TIME PER SPEECH THERAPIST
[2020-05-22] MEDS ORDERED: ENOXAPARIN SODIUM 30 MG/0.3 ML DISP.SYRIN ONE (09:59)
[2020-05-22] MEDS: DAKINS QUARTER STRENGTH (0.125%) 480 ML BOTTLE TOP SCH (10:00)
[2020-05-22] MEDS: ENOXAPARIN SODIUM 30 MG/0.3 ML DISP.SYRIN SQ SCH (10:00)
--- NOTE | 2020-05-22 10:48 | NUR ---
REPOSITIONED AT HER R SIDE FOR COMFORT
--- NOTE | 2020-05-22 11:42 | NUR ---
PATIENT ASLEEP, AROUSABLE BY TACTILE STIMULI. APPEARS DROWSY. HOOKED TO MONITOR. WILL CONTINUE TO MONITOR ACCORDINGLY.
--- NOTE | 2020-05-22 12:12 | NUR ---
DR KRISTY BLANK AT BEDSIDE. MADE AWARE OF PATIENT BEING DROWSY AND NOT BEING ABLE TO TAKE PO MEDICATIONS.
--- NOTE | 2020-05-22 14:09 | NUR ---
REPOSITIONED PATIENT ON HER RIGHT SIDE FOR COMFORT.
[2020-05-22] MEDS ORDERED: POTASSIUM CHLORIDE 20 MEQ POWDER PACKET PO ONE (15:00)
[2020-05-22] MEDS ORDERED: K PHOS NEUTRAL 250 MG TABLET PO ONE (16:30)
--- NOTE | 2020-05-22 17:12 | NUR ---
REPOSITIONED PATIENT TO SUPINE POSITION
--- NOTE | 2020-05-22 17:45 | NUR ---
IN BED, AROUSABLE BY TACTILE STIMULI. PATIENT APPEARS DROWSY, REFUSES TO TAKE MEDICATIONS.
--- NOTE | 2020-05-22 18:10 | NUR ---
GOT BED 309-2
--- NOTE | 2020-05-22 18:24 | NUR ---
REPORT GIVEN TO NIDA LITTLE FOR MARITA.
--- NOTE | 2020-05-22 19:30 | NUR ---
RN NOTES PATIENT RECEIVED RESTING IN BED AO X 1. STABLE ON RA WITH BREATHING EVEN AND UNLABORED, NO SOB NOTED. NO SIGNS OF ACUTE DISTRESS. NO SIGNS OF PAIN OR DISCOMFORT AT THE MOMENT. ALL BELONGINGS ACCOUNTED FOR. PATIENT ORIENTED TO ROOM AND STAFF. SKIN ASSESSMENT DONE. VITALS TAKEN. PATIENT SAFETY PRECAUTIONS IN PLACE WITH BED IN LOWEST POSITION, CALL LIGHT WITHIN REACH, BREAKS ON, SIDE RAILS UP.
[2020-05-22 20:00] VITALS: BP 113/92
[2020-05-22] MEDS: IV D5/0.45 NACL 1,000 ML IV PRN (20:03)
[2020-05-22] MEDS: VANCOMYCIN 0.75 GM in IV D5W 250 ML IV SCH (20:04)
[2020-05-22] MEDS: CEFTRIAXONE 1 G in IV D5W 50 ML IV SCH (21:25)
[2020-05-22] MEDS: DONEPEZIL 5 MG TABLET PO SCH (22:00)
[2020-05-23] MEDS: BLOOD SUGAR DIAGNOSTIC 1 EACH STRIP IN SCH ×4 (00:58→18:09)
--- NOTE | 2020-05-23 07:09 | NUR ---
RN CLOSING NOTES PATIENT RESTING IN BED AO X 1. STABLE ON RA WITH BREATHING EVEN AND UNLABORED, NO SOB NOTED. NO SIGNS OF ACUTE DISTRESS. NO SIGNS OF PAIN OR DISCOMFORT AT THE MOMENT. IV LOCATED ON L WRIST #24 RUNNING D5 1/2 NS @ 100 ML/ HR. SAFETY PRECAUTIONS IN PLACE WITH BED IN LOWEST POSITION, PEDRO LIGHT WITHIN REACH, BREAKS ON, SIDE RAILS UP.
--- NOTE | 2020-05-23 07:51 | NUR ---
MS RN NOTES PATIENT IN BED SLEEP; A/O X1, EASILY AWAKEN. ON ROOM AIR; TOLERATING WELL, NO ACUTE RESPIRATORY DISTRESS NOTED AT THIS TIME. IV ON LEFT WRIST #24, PATENT AND INTACT. NO S/S OF PAIN OR DISCOMFORT. BED IN LOCKED LOWERED POSITION, SIDE RAILS UPX2, CALL LIGHT WITHIN REACH. WILL CONTINUE TO MONITOR.
[2020-05-23 08:00] VITALS: BP 121/57
[2020-05-23 08:43] LABS: BASOPHILS % (AUTO) 0.4 % (0.0-2.0); EOSINOPHILS % (AUTO) 0.9 % (0.0-6.0); HEMATOCRIT 40 % (33-45); HEMOGLOBIN 13.8 g/dL (11.5-14.8); LYMPHOCYTES # (AUTO) 1.2 /CMM (0.8-4.8); LYMPHOCYTES % (AUTO) 17.6 % (20.0-44.0); MEAN CORPUSCULAR HGB CONC 34 g/dl (31.0-36.0); MEAN CORPUSCULAR VOLUME 97 fL (82-100); MONOCYTES # (AUTO) 0.5 /CMM (0.1-1.30); MONOCYTES % (AUTO) 8.2 % (2.0-12.0); NEUTROPHILS # (AUTO) 4.8 /CMM (1.8-8.9); NEUTROPHILS % (AUTO) 72.9 % (43.0-81.0); PLATELET COUNT (AUTO) 126 /CMM (150-450); RED BLOOD CELL COUNT(AUTO) 4.18 MIL/uL (4.0-5.2); WHITE BLOOD COUNT (AUTO) 6.6 K/uL (4.3-11.0)
[2020-05-23] MEDS ORDERED: ACETAMINOPHEN 325 MG TABLET PO PRN (09:30)
[2020-05-23 09:33] LABS: CALCIUM, SERUM 7.5 mg/dL (8.5-10.1); CREATININE 0.8 mg/dL (0.6-1.3); MAGNESIUM 2.2 mg/dL (1.8-2.4); POTASSIUM 3.1 mmol/L (3.5-5.1)
[2020-05-23] MEDS ORDERED: MAGNESIUM HYDROXIDE 30 ML UDC PO PRN (10:00)
[2020-05-23] MEDS ORDERED: ONDANSETRON HCL/PF 4 MG/2 ML VIAL IVP PRN (10:00)
[2020-05-23] MEDS: AMLODIPINE BESYLATE 5 MG TABLET PO SCH (10:35)
[2020-05-23] MEDS: QUETIAPINE FUMARATE 25 MG TABLET PO SCH ×3 (10:43→22:24)
[2020-05-23] MEDS: LEVOTHYROXINE SODIUM 100 MCG TABLET PO SCH (10:43)
[2020-05-23] MEDS: ENOXAPARIN SODIUM 30 MG/0.3 ML DISP.SYRIN SQ SCH (10:44)
[2020-05-23] MEDS: ANASTROZOLE 1 MG TABLET PO SCH (10:44)
[2020-05-23] MEDS: VALPROIC ACID 250 MG/5 ML UDC PO SCH ×2 (10:44→18:08)
[2020-05-23] MEDS: CITALOPRAM HYDROBROMIDE 20 MG TABLET PO SCH (10:45)
[2020-05-23] MEDS: CALCIUM CARB 250MG /VITAMIN D 1 UDTAB PO SCH ×2 (10:47→17:00)
[2020-05-23] MEDS: DAKINS QUARTER STRENGTH (0.125%) 480 ML BOTTLE TOP SCH (10:48)
[2020-05-23] MEDS ORDERED: QUETIAPINE FUMARATE 25 MG TABLET PO SCH (13:00)
[2020-05-23] MEDS ORDERED: POTASSIUM CHLORIDE 20 MEQ TAB.PRT.SR PO SCH (13:30)
[2020-05-23] MEDS ORDERED: K PHOS NEUTRAL 250 MG TABLET PO ONE (15:30)
[2020-05-23 16:00] VITALS: BP 128/100
[2020-05-23] MEDS: IV D5/0.45 NACL 1,000 ML IV PRN (16:54)
--- NOTE | 2020-05-23 19:32 | NUR ---
MS RN CLOSING NOTES PATIENT IN BED SLEEP; A/O X1, EASILY AWAKEN. ON ROOM AIR; TOLERATING WELL, NO ACUTE RESPIRATORY DISTRESS NOTED AT THIS TIME. IV ON LEFT WRIST #24, PATENT AND INTACT, D5 1/2NS @ 100ML/HR INFUSING . NO S/S OF PAIN OR DISCOMFORT. PATIENT ON NPO DIET EXCEPT FOR MEDS. BED IN LOCKED LOWERED POSITION, SIDE RAILS UPX2, CALL LIGHT WITHIN REACH. WILL ENDORSE PLAN OF CARE TO ONCOMING NURSE.
--- NOTE | 2020-05-23 19:45 | NUR ---
MS RN OPENING NOTE: RECEIVED PATIENT FROM DAYSMTFT NURSE; A/O X1, EASILY AWAKEN. ON ROOM AIR; TOLERATING WELL, NO ACUTE RESPIRATORY DISTRESS NOTED AT THIS TIME. IV ON RIGHT WRIST #24, PATENT AND INTACT. NO S/S OF PAIN OR DISCOMFORT. BED IN LOCKED LOWERED POSITION, SIDE RAILS UPX2, CALL LIGHT WITHIN REACH. WILL CONTINUE TO MONITOR.
[2020-05-23 20:00] VITALS: BP 131/62
[2020-05-23] MEDS: CEFTRIAXONE 1 G in IV D5W 50 ML IV SCH (21:07)
[2020-05-23] MEDS: DONEPEZIL 5 MG TABLET PO SCH (22:24)
[2020-05-24] MEDS: BLOOD SUGAR DIAGNOSTIC 1 EACH STRIP IN SCH ×4 (00:19→17:44)
[2020-05-24] MEDS: IV D5/0.45 NACL 1,000 ML IV PRN ×2 (04:00→14:17)
--- NOTE | 2020-05-24 07:30 | NUR ---
MS/RN OPENING NOTE Received patient resting in bed, A&O x 1, easily arousable to touch and verbal stimulation. Breathing even and non-labored on RA. No respiratory or cardiac distress noted. IV access noted on D5 05/23 NS @100 ml/hr. Bed locked to its lowest position, side rails x 2 up, call light in hand, bed alarm on. Will continue with current medical management. Addendum: 05/24/20 at 1856 by HARVINDER CASEY RN IV ACCESS ON R wrist #24g
[2020-05-24 07:32] LABS: CALCIUM, SERUM 7.1 mg/dL (8.5-10.1); CREATININE 0.7 mg/dL (0.6-1.3); MAGNESIUM 2.2 mg/dL (1.8-2.4); PHOSPHORUS 2.2 mg/dL (2.5-4.9)
[2020-05-24 08:00] VITALS: BP 148/69
[2020-05-24 08:41] LABS: BASOPHILS % (AUTO) 0.2 % (0.0-2.0); EOSINOPHILS % (AUTO) 1.2 % (0.0-6.0); HEMATOCRIT 45 % (33-45); HEMOGLOBIN 14.5 g/dL (11.5-14.8); LYMPHOCYTES # (AUTO) 1.6 /CMM (0.8-4.8); LYMPHOCYTES % (AUTO) 18.7 % (20.0-44.0); MEAN CORPUSCULAR HGB CONC 32 g/dl (31.0-36.0); MEAN CORPUSCULAR VOLUME 102 fL (82-100); MONOCYTES # (AUTO) 0.7 /CMM (0.1-1.30); MONOCYTES % (AUTO) 8.7 % (2.0-12.0); NEUTROPHILS # (AUTO) 5.9 /CMM (1.8-8.9); NEUTROPHILS % (AUTO) 71.2 % (43.0-81.0); PLATELET COUNT (AUTO) 105 /CMM (150-450); RED BLOOD CELL COUNT(AUTO) 4.41 MIL/uL (4.0-5.2); WHITE BLOOD COUNT (AUTO) 8.3 K/uL (4.3-11.0)
[2020-05-24] MEDS: LEVOTHYROXINE SODIUM 100 MCG TABLET PO SCH (09:01)
[2020-05-24] MEDS: QUETIAPINE FUMARATE 25 MG TABLET PO SCH ×3 (09:01→21:01)
[2020-05-24] MEDS: ANASTROZOLE 1 MG TABLET PO SCH (09:01)
[2020-05-24] MEDS: CITALOPRAM HYDROBROMIDE 20 MG TABLET PO SCH (09:02)
[2020-05-24] MEDS: AMLODIPINE BESYLATE 5 MG TABLET PO SCH (09:02)
[2020-05-24] MEDS: VALPROIC ACID 250 MG/5 ML UDC PO SCH ×2 (09:02→17:44)
[2020-05-24] MEDS: DAKINS QUARTER STRENGTH (0.125%) 480 ML BOTTLE TOP SCH (09:03)
[2020-05-24] MEDS: ENOXAPARIN SODIUM 30 MG/0.3 ML DISP.SYRIN SQ SCH (09:06)
[2020-05-24] MEDS: CALCIUM CARB 250MG /VITAMIN D 1 UDTAB PO SCH ×2 (09:07→17:42)
[2020-05-24 16:00] VITALS: BP 108/82
--- NOTE | 2020-05-24 18:54 | NUR ---
MS/RN CLOSING NOTE Patient resting in bed, A&O x 1, easily arousable to touch and verbal stimulation. All needs met and attended to. Breathing even and non-labored on RA. No respiratory or cardiac distress noted. IV access noted on R wrist #24g, patent and intact, and running D5 1/2 NS @100 ml/hr. Fall precautions maintained. Will endorse to shift lab technician nurse.
--- NOTE | 2020-05-24 19:45 | NUR ---
MSRN SLEEPING AROUSABLE WHEN CALLED. NO SOB, REPOSITIONED. VERBAL LIMITED, CONFUSED. KEPT COMFORTABLE. CONTINUED
[2020-05-24 20:00] VITALS: BP 100/41
[2020-05-24] MEDS ORDERED: K PHOS NEUTRAL 250 MG TABLET PO ONE (20:00)
[2020-05-24] MEDS: DONEPEZIL 5 MG TABLET PO SCH (21:01)
[2020-05-24] MEDS: CEFTRIAXONE 1 G in IV D5W 50 ML IV SCH (21:21)
--- NOTE | 2020-05-24 22:00 | NUR ---
MSRN DUE MEDS ADMINISTERED BY RN. IV SITE INFILTRATED. LIUICK ABLE TO GET ORDER FOR MIDLINE.
--- NOTE | 2020-05-25 00:30 | NUR ---
MSRN BS 65 D 50 ADMINISTERED. RECHECKED BLOOD SUGR AFTER 30 MINS WAS 182. PATIENT MORE AWAKE . CLOSELY WATCHED.
[2020-05-25] MEDS: DEXTROSE 50%-WATER 50 ML DISP.SYRIN IV PRN ×3 (01:29→22:44)
[2020-05-25] MEDS: BLOOD SUGAR DIAGNOSTIC 1 EACH STRIP IN SCH ×5 (01:29→23:42)
--- NOTE | 2020-05-25 07:00 | NUR ---
MSRN REMAINS UNCHANGED, ENDORSED TO INCOOMING RN
[2020-05-25] MEDS: LEVOTHYROXINE SODIUM 100 MCG TABLET PO SCH (07:15)
--- NOTE | 2020-05-25 07:37 | NUR ---
MS RN OPENING NOTE: RECEIVED PATIENT ASLEEP IN BED, EASILY AWAKENS. HOB ELEVATED. PT IS A/O X1, APPEARS COMFORTABLE WITH NO S/S OF PAIN NOTED AT THIS TIME. ON ROOM AIR, BREATHING EVEN AND UNLABORED. IV ACCESS ON RIGHT WRIST #24 PATENT AND INTACT. SAFETY MEASURES IN P[LACE: BED IN LOWEST LOCKED POSITION, SIDE RAILS UPX2, BED ALARM ON AND CALL LIGHT WITHIN REACH. WILL CONTINUE TO MONITOR.
[2020-05-25 08:00] VITALS: BP 119/63
[2020-05-25] MEDS: VALPROIC ACID 250 MG/5 ML UDC PO SCH ×2 (08:48→16:52)
[2020-05-25] MEDS: AMLODIPINE BESYLATE 5 MG TABLET PO SCH (08:49)
[2020-05-25] MEDS: CALCIUM CARB 250MG /VITAMIN D 1 UDTAB PO SCH ×2 (08:49→16:52)
[2020-05-25] MEDS: QUETIAPINE FUMARATE 25 MG TABLET PO SCH ×3 (08:49→22:56)
[2020-05-25] MEDS: ENOXAPARIN SODIUM 30 MG/0.3 ML DISP.SYRIN SQ SCH (08:50)
[2020-05-25] MEDS: CITALOPRAM HYDROBROMIDE 20 MG TABLET PO SCH (08:51)
[2020-05-25] MEDS: ANASTROZOLE 1 MG TABLET PO SCH (08:52)
[2020-05-25] MEDS: DAKINS QUARTER STRENGTH (0.125%) 480 ML BOTTLE TOP SCH (08:53)
--- NOTE | 2020-05-25 09:30 | NUR ---
RN NOTES PT NOTED WITH LOW BS THIS MORNING 58 MG/DL, D 50 GIVEN AND BS WENT UP TO 161. MD MADE AWARE. WILL CONTINUE TO MONITOR DIABETIC STATUS.
--- NOTE | 2020-05-25 09:54 | NUR ---
RN NOTES ANABEL MENDOZA INSERTED MIDLINE G#18 TO RIGHT UPPER ARM. IVF OF D5 1/2 NS AT 100ML/HR RESUMED. WILL CONTINUE TO MONITOR.
[2020-05-25] MEDS: IV D5/0.45 NACL 1,000 ML IV PRN (13:34)
--- NOTE | 2020-05-25 15:28 | NUR ---
RN NOTES DR DONOHUE WITH ORDER TO OBTAIN CONSENT FOR PEG INSERTION. CALLED AND OBTAINED CONSENT FROM PT'S SON XENA BAUER AT [facility] #[phone] AND VERIFY WITH ANOTHER ANABEL ISIDRO. ALL CONSENTS PLACED IN CHART.
[2020-05-25 16:00] VITALS: BP 107/73
--- NOTE | 2020-05-25 18:53 | NUR ---
MS RN CLOSING NOTE: PATIENT IN BED AWAKE AND LYING AT MODERATE HIGH BACKREST POSITION. A/O X1. MOUTH WORDS AT TIMES, RESPONSIVE TO TACTILE AND PAIN STIMULI. PT FOR POSSIBLE PEG TUBE INSERTION TOMORROW BY DR DONOHUE, WILL ENFORCED NPO POST MIDNIGHT. ON ROOM AIR, BREATHING EVEN AND UNLABORED, NO SOB NOTED DURING THE DAY. JENNA MIDLINE G#18 PATENT, INTACT AND FLUSHES WELL. PT TURNED AND REPOSITIONED Q 2HRS AND PRN. KEPT PT CLEAN, DRY AND COMFORTABLE. SAFETY MEASURES KEPT IN PLACE: BED IN LOWEST LOCKED POSITION, SIDE RAILS UPX2, BED ALARM ON AND CALL LIGHT WITHIN REACH. WILL ENDORSE TO BANDER NURSE FOR MARITA
[2020-05-25 20:00] VITALS: BP 105/75
[2020-05-25] MEDS: DONEPEZIL 5 MG TABLET PO SCH (22:56)
[2020-05-25] MEDS: DOXYCYCLINE HYCLATE (100 MG) 100 MG TABLET PO SCH (22:56)
--- NOTE | 2020-05-25 23:43 | NUR ---
hypoglycemia bs 65 ; given juice x2 bs rechecked now 77
--- NOTE | 2020-05-25 23:57 | NUR ---
informed assistant professor of history ana maria about low bs states she will look into putting in new order for fluid with dextrose.
--- NOTE | 2020-05-26 | NUR ---
pt made npo for possible peg tube placement by dr. miramontes. Addendum: 05/26/20 at 0236 by YANNA STRATTON RN on 05/26/20
[2020-05-26] MEDS ORDERED: IV D5/ 0.9% NACL 1,000 ML IV PRN (01:00)
[2020-05-26 06:33] LABS: BASOPHILS % (AUTO) 0.4 % (0.0-2.0); EOSINOPHILS % (AUTO) 1.2 % (0.0-6.0); HEMATOCRIT 38 % (33-45); HEMOGLOBIN 12.7 g/dL (11.5-14.8); LYMPHOCYTES % (AUTO) 18.9 % (20.0-44.0); MEAN CORPUSCULAR HGB CONC 34 g/dl (31.0-36.0); MEAN CORPUSCULAR VOLUME 98 fL (82-100); MONOCYTES # (AUTO) 0.5 /CMM (0.1-1.30); MONOCYTES % (AUTO) 8.5 % (2.0-12.0); NEUTROPHILS # (AUTO) 3.9 /CMM (1.8-8.9); PLATELET COUNT (AUTO) 113 /CMM (150-450); RED BLOOD CELL COUNT(AUTO) 3.84 MIL/uL (4.0-5.2); WHITE BLOOD COUNT (AUTO) 5.4 K/uL (4.3-11.0)
[2020-05-26] MEDS: BLOOD SUGAR DIAGNOSTIC 1 EACH STRIP IN SCH ×3 (06:38→17:37)
[2020-05-26] MEDS: LEVOTHYROXINE SODIUM 100 MCG TABLET PO SCH (06:39)
[2020-05-26 06:42] LABS: CALCIUM, SERUM 7.1 mg/dL (8.5-10.1); CREATININE 0.9 mg/dL (0.6-1.3); MAGNESIUM 1.8 mg/dL (1.8-2.4); PHOSPHORUS 2.5 mg/dL (2.5-4.9); POTASSIUM 2.9 mmol/L (3.5-5.1)
[2020-05-26 08:00] VITALS: BP 106/54
[2020-05-26] MEDS: QUETIAPINE FUMARATE 25 MG TABLET PO SCH ×3 (08:00→22:00)
--- NOTE | 2020-05-26 08:30 | NUR ---
m/s streetcar conductor: notes o.r. team nurses here at bedside and assessed pt. informed them we are going to replace the potassium due to level=2.9.
[2020-05-26] MEDS: POTASSIUM CL. PREMIX PERIPHER. 50 ML IV SCH ×4 (08:55→13:26)
[2020-05-26] MEDS: ANASTROZOLE 1 MG TABLET PO SCH (08:57)
[2020-05-26] MEDS: CITALOPRAM HYDROBROMIDE 20 MG TABLET PO SCH (08:57)
[2020-05-26] MEDS: VALPROIC ACID 250 MG/5 ML UDC PO SCH ×2 (08:57→17:00)
[2020-05-26] MEDS: AMLODIPINE BESYLATE 5 MG TABLET PO SCH (08:57)
[2020-05-26] MEDS: DOXYCYCLINE HYCLATE (100 MG) 100 MG TABLET PO SCH ×2 (08:58→21:00)
[2020-05-26] MEDS: ENOXAPARIN SODIUM 30 MG/0.3 ML DISP.SYRIN SQ SCH (08:58)
[2020-05-26] MEDS: CALCIUM CARB 250MG /VITAMIN D 1 UDTAB PO SCH ×2 (08:58→17:00)
--- NOTE | 2020-05-26 09:00 | NUR ---
m/s medical insurance collector: notes pt brought down to o.r. via bed for peg placement with chart.
[2020-05-26] MEDS ORDERED: ANESTHESIA TRAY IN PYXIS 1 EA TRAY MC ONE (09:13)
[2020-05-26 10:45] VITALS: BP 104/48
--- NOTE | 2020-05-26 10:45 | NUR ---
m/s particleboard factory worker: notes received pt from recovery room via bed with dx: s/p peg placement. abdominal binder placed by haja (o.r. nurse) at bedside. kept comfortable. in no apparent distress noted. will continue to monitor.
[2020-05-26 12:00] VITALS: BP 101/43
--- NOTE | 2020-05-26 14:50 | NUR ---
m/s recycling collections driver: ancelmo torres (dietitian) notified for consult re: tube feeding to start in am.
[2020-05-26 16:00] VITALS: BP 122/48
--- NOTE | 2020-05-26 17:35 | NUR ---
m/s system engineer: notes s/p peg and to start using in am. meds held.
[2020-05-26] MEDS: DAKINS QUARTER STRENGTH (0.125%) 480 ML BOTTLE TOP SCH (17:37)
--- NOTE | 2020-05-26 19:30 | NUR ---
m/s principal account clerk: notes report given to rosalino (primary nurse) for continuity of care.
--- NOTE | 2020-05-26 20:00 | NUR ---
MS/TELE/RN PATIENT IS SLEEPING, APPEAR COMFORTABLE, NO DISTRESS NOTED, CALL LIGHT IN REACH. WILL MONITOR.
[2020-05-26 22:00] VITALS: BP 102/73
[2020-05-26] MEDS: DONEPEZIL 5 MG TABLET PO SCH (22:00)
[2020-05-27] MEDS: DEXTROSE 50%-WATER 50 ML DISP.SYRIN IV PRN ×2 (00:36→06:11)
--- NOTE | 2020-05-27 00:40 | NUR ---
MS/TELE/RN ACCU CHECK BLOOD SUGAR 53, PATIENT IS ASYMPTOMATIC, D50 IVP WAS GIVEN ORDERED. WILL MONITOR AND WILL RECHECK BLOOD SUGAR PER PROTOCOL.
[2020-05-27] MEDS: BLOOD SUGAR DIAGNOSTIC 1 EACH STRIP IN SCH ×5 (00:42→23:17)
[2020-05-27] MEDS: LEVOTHYROXINE SODIUM 100 MCG TABLET PO SCH (06:11)
[2020-05-27 07:14] LABS: BASOPHILS % (AUTO) 0.2 % (0.0-2.0); EOSINOPHILS % (AUTO) 0.7 % (0.0-6.0); HEMATOCRIT 40 % (33-45); HEMOGLOBIN 13.4 g/dL (11.5-14.8); LYMPHOCYTES # (AUTO) 1.1 /CMM (0.8-4.8); MEAN CORPUSCULAR HGB CONC 33 g/dl (31.0-36.0); MEAN CORPUSCULAR VOLUME 100 fL (82-100); MONOCYTES # (AUTO) 0.6 /CMM (0.1-1.30); MONOCYTES % (AUTO) 8.1 % (2.0-12.0); NEUTROPHILS # (AUTO) 6.1 /CMM (1.8-8.9); PLATELET COUNT (AUTO) 113 /CMM (150-450); RED BLOOD CELL COUNT(AUTO) 4.05 MIL/uL (4.0-5.2); WHITE BLOOD COUNT (AUTO) 7.9 K/uL (4.3-11.0)
--- NOTE | 2020-05-27 07:30 | NUR ---
RN MS NOTES PT IN BED, AWAKE, CONFUSED, NO SIGN OF PAIN, NOT IN DISTRESS, KEPT WARM AND COMFORTABLE IN BED, REPOSITIONED FOR COMFORT.
[2020-05-27 07:47] LABS: CALCIUM, SERUM 7.5 mg/dL (8.5-10.1); CREATININE 0.8 mg/dL (0.6-1.3); MAGNESIUM 1.8 mg/dL (1.8-2.4); PHOSPHORUS 2.3 mg/dL (2.5-4.9); POTASSIUM 4.4 mmol/L (3.5-5.1)
[2020-05-27 08:00] VITALS: BP 135/71
[2020-05-27] MEDS ORDERED: JEVITY 1.2 CAL 1,000 ML BOTTLE GT PRN (08:00)
[2020-05-27] MEDS: ANASTROZOLE 1 MG TABLET PO SCH (08:31)
[2020-05-27] MEDS: ENOXAPARIN SODIUM 30 MG/0.3 ML DISP.SYRIN SQ SCH (08:33)
[2020-05-27] MEDS: CALCIUM CARB 250MG /VITAMIN D 1 UDTAB PO SCH ×2 (08:34→16:12)
[2020-05-27] MEDS: VALPROIC ACID 250 MG/5 ML UDC PO SCH ×2 (08:34→16:11)
[2020-05-27] MEDS: DOXYCYCLINE HYCLATE (100 MG) 100 MG TABLET PO SCH ×2 (08:35→21:58)
[2020-05-27] MEDS: QUETIAPINE FUMARATE 25 MG TABLET PO SCH ×3 (08:35→21:58)
[2020-05-27] MEDS: CITALOPRAM HYDROBROMIDE 20 MG TABLET PO SCH (08:35)
[2020-05-27] MEDS: AMLODIPINE BESYLATE 5 MG TABLET PO SCH (08:36)
[2020-05-27] MEDS: DAKINS QUARTER STRENGTH (0.125%) 480 ML BOTTLE TOP SCH (08:57)
[2020-05-27] MEDS ORDERED: LACT-209 GT (13:31)
[2020-05-27] MEDS ORDERED: DOXY100T2 PO (13:32)
[2020-05-27] MEDS ORDERED: K PHOS NEUTRAL 250 MG TABLET PO ONE (15:30)
[2020-05-27 16:00] VITALS: BP 128/65
--- NOTE | 2020-05-27 19:00 | NUR ---
RN MS NOTES PT IN BED, RESTING, NO SIGN OF PAIN OR DISTRESS, GT FEEDING INFUSING WELL, NO S/S OF HYPOGLYCEMIA NOTED, PM MEDS GIVEN, PM CARE PROVIDED, TURNED AND REPOSITIONED, ALL NEEDS ATTENDED.
--- NOTE | 2020-05-27 19:30 | NUR ---
RN MS OPENING NOTE: PATIENT IN BED, AWAKE AND ALERT X1. PT REMAINS CONFUSED, NO S/SX OF ACUTE RESPIRATORY ACUTE DISTRESS NOTED. NO SIGNS OF PAIN DISCOMFORT NOTED. ON JEVITY @20ML/HR INFUSING WELL. IV ACCESS ON JENNA MIDLINE PATENT AND INTACT. KEPT WARM AND COMFORTABLE. REPOSITIONED FOR COMFORT. SAFETY PRECAUTIONS IN PLACE. WILL CONTINUE TO MONITOR.
[2020-05-27 20:00] VITALS: BP 112/80
[2020-05-27] MEDS: DONEPEZIL 5 MG TABLET PO SCH (21:58)
[2020-05-28] MEDS: BLOOD SUGAR DIAGNOSTIC 1 EACH STRIP IN SCH ×2 (05:38→12:09)
[2020-05-28] MEDS: LEVOTHYROXINE SODIUM 100 MCG TABLET PO SCH (06:33)
--- NOTE | 2020-05-28 07:29 | NUR ---
RN MS CLOSING NOTE: PATIENT IN BED, ASLEEP AROUSES EASILY. NO S/SX OF ACUTE RESPIRATORY ACUTE DISTRESS NOTED. NO SIGNS OF PAIN DISCOMFORT NOTED. ON JEVITY @20ML/HR INFUSING WELL. IV ACCESS ON JENNA MIDLINE PATENT AND INTACT. KEPT WARM AND COMFORTABLE. REPOSITIONED FOR COMFORT. SAFETY PRECAUTIONS IN PLACE. WILL ENDORSE TO DAY SHIFT FOR CONTINUITY OF CARE.
--- NOTE | 2020-05-28 07:37 | NUR ---
MS/RN OPENING NOTE RECEIVED PATIENT FROM [employer] AUTOMOTIVE TECHNICIAN NURSE PATIENT IS IN BED, AWAKE. A/O X1, CONFUSED. PATIENT IN NO ACUTE DISTRESS AT THIS TIME. SAFETY MEASURES IN PLACE, CALL LIGHT WITHIN REACH, BED LOCKED AND IN LOWEST POSITION. WILL CONTINUE TO MONITOR AND ENSURE SAFETY.
[2020-05-28 08:00] VITALS: BP 129/77
[2020-05-28] MEDS: DAKINS QUARTER STRENGTH (0.125%) 480 ML BOTTLE TOP SCH (09:00)
[2020-05-28] MEDS: DOXYCYCLINE HYCLATE (100 MG) 100 MG TABLET PO SCH (10:38)
[2020-05-28] MEDS: CITALOPRAM HYDROBROMIDE 20 MG TABLET PO SCH (10:38)
[2020-05-28 10:39] VITALS: BP 129/77
[2020-05-28] MEDS: AMLODIPINE BESYLATE 5 MG TABLET PO SCH (10:39)
[2020-05-28] MEDS: QUETIAPINE FUMARATE 25 MG TABLET PO SCH ×2 (10:40→12:32)
[2020-05-28] MEDS: CALCIUM CARB 250MG /VITAMIN D 1 UDTAB PO SCH (10:40)
[2020-05-28] MEDS: VALPROIC ACID 250 MG/5 ML UDC PO SCH (10:41)
[2020-05-28] MEDS: ANASTROZOLE 1 MG TABLET PO SCH (10:42)
[2020-05-28] MEDS: ENOXAPARIN SODIUM 30 MG/0.3 ML DISP.SYRIN SQ SCH (10:43)
[2020-05-28] MEDS ORDERED: JEVITY 1.2 CAL 1,000 ML BOTTLE GT PRN (13:22)
== END 2020-05-28 16:38 | DRG 853 ==
LOC: ER 15:29 → TRANSITION 21:12 → UNDOADMIN 21:12 → MED 05-22 18:54
PROVIDERS: ADMIT Nurse Practitioner Acute Care
PROC: 0JBM0ZZ Excision of Left Upper Leg Subcutaneous Tissue and Fascia, Open Approach (ICD-10-PCS; principal; 2020-05-21)
PROC: 05HY33Z Insertion of Infusion Device into Upper Vein, Percutaneous Approach (ICD-10-PCS; 2020-05-25)
PROC: 0DH63UZ Insertion of Feeding Device into Stomach, Percutaneous Approach (ICD-10-PCS; 2020-05-26)
PROC: 0DB68ZX Excision of Stomach, Via Natural or Artificial Opening Endoscopic, Diagnostic (ICD-10-PCS; 2020-05-26)
DX: A41.9 Sepsis, unspecified organism (principal); N17.0 Acute kidney failure with tubular necrosis; G93.41 Metabolic encephalopathy; R53.2 Functional quadriplegia; L89.223 Pressure ulcer of left hip, stage 3; D68.59 Other primary thrombophilia; E44.1 Mild protein-calorie malnutrition; N39.0 Urinary tract infection, site not specified; E87.0 Hyperosmolality and hypernatremia; E87.2 Acidosis; L03.116 Cellulitis of left lower limb; Z68.1 Body mass index [BMI] 19.9 or less, adult; Z20.828 Contact with and (suspected) exposure to other viral communicable diseases; E86.0 Dehydration; B96.4 Proteus (mirabilis) (morganii) as the cause of diseases classified elsewhere; E03.9 Hypothyroidism, unspecified; F20.9 Schizophrenia, unspecified; I10 Essential (primary) hypertension; E80.6 Other disorders of bilirubin metabolism; K29.70 Gastritis, unspecified, without bleeding; L89.156 Pressure-induced deep tissue damage of sacral region; R13.10 Dysphagia, unspecified; F03.90 Unspecified dementia, unspecified severity, without behavioral disturbance, psychotic disturbance, mood disturbance, and anxiety; E86.9 Volume depletion, unspecified; R74.01 Elevation of levels of liver transaminase levels; E88.09 Other disorders of plasma-protein metabolism, not elsewhere classified; G40.909 Epilepsy, unspecified, not intractable, without status epilepticus; E87.6 Hypokalemia; E83.51 Hypocalcemia; N13.9 Obstructive and reflux uropathy, unspecified; R62.7 Adult failure to thrive
CPT/HCPCS: 36415; 43246; 71045-TC; 80048-TC; 80061-TC; 80076-TC; 80202-TC; 81001; 82550-TC; 82962-TC; 83605-TC; 83615-TC; 83735-TC; 84100-TC; 84484-TC; 85025-TC; 85378-TC; 85385-TC; 85610-TC; 85730-TC; 86140-TC; 87040-TC; 87081-TC; 87086-TC; 87186-TC; 92526; 92611-TC; 97112-TC; 97530-TC; A6253; A6403; C9803; G0378; J0690; J0696; J1650; J2543; J2704; J3370; J3475; J3480; J3490; J7030; J7040; J7042; J7060; U0003